=== PATIENT | male | born 1935 | race Caucasian/White ===

== ENCOUNTER 2017-08-04 10:02 | Day surgery (SDC) | payer MEDICARE, OTHER ==
--- NOTE | 2017-08-04 09:32 | HP ---
DATE OF SURGERY: 08/04/2017 HISTORY OF PRESENT ILLNESS: The patient is an 81 year-old with history of chronic renal failure, history of previously undergoing hemodialysis with fistula, interested in peritoneal dialysis catheter. He had a prior midline incision in the past. PAST MEDICAL HISTORY: Diabetes, gout. PAST SURGICAL HISTORY: Cholecystectomy. Fistula. Hemodialysis catheter placed for dialysis in the past. MEDICATIONS: Atorvastatin, Lantus, indomethacin, NovoLog, Neurontin, Renvela, Synthroid, Triphrocaps, fish oil, gabapentin, Colcrys, aspirin. ALLERGIES: NKDA. FAMILY HISTORY: Hypertension. SOCIAL HISTORY: No alcohol abuse. REVIEW OF SYSTEMS: Twelve systems reviewed per admission assessment. No chest pain or palpitations other systems negative or noncontributory as above and per preadmission questionnaire. PHYSICAL EXAMINATION: GENERAL: No acute distress. HEENT: Sclerae nonicteric. NECK: No JVD. CHEST: Equal excursion, nonlabored breathing. CVS: Regular rate and rhythm. ABDOMEN: Soft. Midline incision as noted previously. No peritoneal signs. EXTREMITIES: No significant edema. NEURO: Alert, moving extremities symmetrically. No gross motor deficits noted. IMPRESSION: Chronic renal failure, failed hemodialysis desires peritoneal dialysis. He was explained the risks and benefits of the procedure in detail but not limited to bleeding or infection, risk of trocar injury or hernia, small risk of bowel, bladder or blood vessel injury possibly requiring other procedures or postponing the peritoneal dialysis catheter placement. General risk of anesthesia, deep venous thrombosis, pulmonary embolism pneumonia, general risk of aches, pains, possibility that he may have too much scar tissue unable to open window enough to place it or may need to convert to open procedure as well as general risk of anesthesia, deep venous thrombosis, pulmonary embolism, pneumonia. Overall possibility if adhesions or scar formation peritoneal catheter may not function well enough to use for dialysis. He understands all the above but not limited to and will proceed with peritoneal dialysis catheter placement possible open as an outpatient.
[~2017-08-04 10:02] MED LIST: Lactated Ringers 0 ML IV ONE; Lactated Ringers 1,000 ML IV SCH; Sensorcaine 0.25% 10 ML ONE
[2017-08-04] MEDS ORDERED: ROBINUL IV ONE (10:03)
[2017-08-04] MEDS ORDERED: BLOXIVERZ IV ONE (10:03)
[2017-08-04] MEDS ORDERED: SUBLIMAZE 100 MCG/2 ML IV ONE (10:03)
[2017-08-04] MEDS ORDERED: DIPRIVAN 200 MG/20 ML IV ONE (10:03)
[2017-08-04] MEDS ORDERED: Versed 2 MG/2 ML Injection IV ONE (10:03)
[2017-08-04] MEDS ORDERED: Nimbex 20MG/10 Ml Vial (HIGH RISK MED) IV ONE (10:03)
[2017-08-04] MEDS ORDERED: Sodium Chloride 0.9% 1000 ML 1,000 ML ONE (10:32)
[2017-08-04] MEDS ORDERED: Sodium Chloride 0.9% 1000 ML 1,000 ML IV SCH (10:45)
[2017-08-04] MEDS ORDERED: CEFAZOLIN 2 GM-D5W BAG** 2 GM/50 ML ML IV SCH (11:00)
[2017-08-04 15:03] VITALS: PULSE 61
--- NOTE | 2017-08-04 15:09 | OP ---
SURGERY DATE/TIME: 08/04/2017 1310 PREOPERATIVE DIAGNOSIS: Chronic renal failure, desires peritoneal dialysis access. POSTOPERATIVE DIAGNOSIS: Chronic renal failure, desires peritoneal dialysis access. PROCEDURE: Laparoscopic peritoneal dialysis catheter placement. SURGEON: Dr. Navneet Weller. MANAGEMENT ADVISOR: Fidencio Zelaya, Medical Student III. ANESTHESIA: General. ESTIMATED BLOOD LOSS: Minimal. INDICATIONS: As noted above. Risks and benefits explained in detail and not limited to and consent obtained. DESCRIPTION OF PROCEDURE AND FINDINGS: The patient is taken to the operating room. General anesthesia introduced. Abdomen prepped and draped in usual sterile fashion. After official time out and no disagreement with planned procedure, a transverse incision made infraumbilical area as he has a large upper midline laparotomy incision. Fascia grasped pulled upwards. Veress needle inserted and tested with saline. Pneumoperitoneum accomplished, opening pressure 0 to 15. A 5 mm bladeless port and camera inserted without difficulty. There is no evidence of any intra-abdominal injury secondary to trocar or Veress needle insertion. A 5 mm left upper quadrant port placed under direct vision of the camera as well as the 8 mm port directed down diagonally towards the pelvis through the left mid lower quadrant. PD catheter was carefully inserted through here. The port removed and catheter pulled back so the cup was at level of the fascia. It was then tunneled out through a second exit site a little more lateral secured with Prolene suture. It was easily flushed with injectable saline with 60 cc of injectable saline. Clamp snapped in place. A titanium connector and cap requested per the dialysis nurse was then placed and in good location. It is flushing well. Although he had a lot of intra-abdominal adhesions in the upper abdomen, he appeared to have enough room in the pelvis that this warranted attempted placing here. The catheter is in as good of position as possible flushing well. At this point pneumoperitoneum decompressed. Port removed. Skin incision closed with 4-0 Vicryl. Steri-Strips and sterile dressing applied. Some Bactroban was placed around the site. The patient tolerated the procedure well. There were no immediate complications. Findings discussed with the family out in the waiting area.
[2017-08-04 15:19] VITALS: BP 132/56; O2SAT 95
== END 2017-08-04 15:20 | disposition home or self-care (01) ==
LOC: SDC 10:02
PROVIDERS: ATTEND Surgery
DX: N18.9 Chronic kidney disease, unspecified (principal); I10 Essential (primary) hypertension; E11.9 Type 2 diabetes mellitus without complications; G47.30 Sleep apnea, unspecified; M10.9 Gout, unspecified; Z79.899 Other long term (current) drug therapy
CPT/HCPCS: 87086; 94250; 99100; C1750; J0690; J2250; J2704; J2710; J3010